=== PATIENT | female | born 1985 | race Caucasian/White ===

== ENCOUNTER 2021-07-01 04:13 | Emergency (ER) | payer BC, MEDICAID, OTHER ==
--- NOTE | 2021-07-01 04:36 | ED Physician Documentation ---
PD HPI ABD PAIN - Stated complaint Stated Complaint: ABD PX - Chief complaint Chief Complaint: Back Pain - History obtained from History obtained from: Patient - History of Present Illness Timing - onset: How many hours ago (4), Today Timing - duration: Hours (4) Timing - details: Abrupt onset (awoke about midnight with left flank to left lwoer abd pain associated with nausea, consistent with prior kidney stones.), Still present Quality: Aching, Sharp, Pain Location: LLQ Radiation: Left flank Improved by: No: Laying still Worsened by: No: Eating, Moving, Position Associated symptoms: Nausea. No: Fever, Hematemesis, Diarrhea, Constipation, Dysuria Similar symptoms before: Diagnosis (several times in the past from kidney stones. 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 : Kidney stones - Present Medications Home Medications: Ambulatory Orders Medication Instructions Recorded Confirmed Naproxen 500 mg PO BID 10 Days #20 tab 07/01/21 Ondansetron Odt [Zofran] 4 mg TL Q6H PRN #10 tablet 07/01/21 oxyCODONE [Roxicodone] 5 mg PO Q4H PRN #12 tablet 07/01/21 - Allergies Allergies/Adverse Reactions: Allergies Allergy/AdvReac Type Severity Reaction Status Date / Time No Known Drug Allergies Allergy Verified 07/01/21 04:33 PD ED PE NORMAL - Vitals Vital signs reviewed: Yes - General General: Alert and oriented X 3, Well developed/nourished, Other (appears in pain, crying, and writhing on cart. ) - Cardiac Cardiac: RRR, No murmur - Respiratory Respiratory: Clear bilaterally - Abdomen Abdomen: Normal bowel sounds, Soft, Non distended, No organomegaly, Other (tender mildly without guarding nor percussion tnederness left lower abd and left CVA area. ) - Female Female : Deferred - Rectal Rectal: Deferred - Back Back: No CVA TTP - Derm Derm: Normal color, Warm and dry - Extremities Extremities: No edema, No calf tenderness / cord - Neuro Neuro: Alert and oriented X 3, No motor deficit, Normal speech Results - Vitals Vitals: Vital Signs - 24 hr 07/01/21 07/01/21 07/01/21 04:31 06:32 07:02 Temperature 36.2 C L 36.4 C L 36.4 C L Heart Rate 99 88 88 Respiratory 19 18 18 Rate Blood Pressure 127/78 137/68 H 137/68 H O2 Saturation 100 99 99 Oxygen O2 Source Room air - Labs Labs: Laboratory Tests 07/01/21 07/01/21 07/01/21 04:45 04:45 04:45 WBC 13.5 H RBC 4.32 Hgb 12.4 Hct 38.1 MCV 88.2 MCH 28.7 MCHC 32.5 RDW 13.7 Plt Count 334 MPV 10.0 Neut # (Auto) 10.6 H Lymph # (Auto) 2.1 [place] # (Auto) 0.5 Eos # (Auto) 0.1 Baso # (Auto) 0.1 Absolute Nucleated RBC 0.00 Nucleated RBC % 0.0 Sodium 132 L Potassium 3.7 Chloride 98 L Carbon Dioxide 24 Anion Gap 10.0 BUN 13 Creatinine 0.7 Estimated GFR (MDRD) 95 Glucose 159 H Calcium 8.6 Total Bilirubin 0.4 AST 29 ALT 50 Alkaline Phosphatase 72 Total Protein 7.3 Albumin 3.7 Globulin 3.6 Albumin/Globulin Ratio 1.0 Lipase 25 Urine Color YELLOW Urine Clarity CLEAR Urine pH 7.0 Ur Specific Artemas 1.020 Urine Protein NEGATIVE Urine Glucose (UA) NEGATIVE Urine Ketones NEGATIVE Urine Occult Blood MODERATE H Urine Nitrite NEGATIVE Urine Bilirubin NEGATIVE Urine Urobilinogen 0.2 (NORMAL) Ur Leukocyte Esterase NEGATIVE Urine RBC 11-25 H Urine WBC 0-3 Ur Squamous Epith Cells MOD Squamous H Urine Bacteria Few Ur Microscopic Review INDICATED Urine Culture Comments NOT INDICATED Urine HCG, Qual NEGATIVE PD MEDICAL DECISION MAKING - ED course Complexity details: reviewed old records (no prior ED visits here nor [facility]. She states she moved to [facility] 4 years ago, address is still [place]. ), re- evaluated patient (improved enough and feels comfortable to go. ), considered differential (symptoms c/w kidney stone and she has had several in the past. Will give meds for pain, and initially hold on imagining (shared decision with patient). ), d/w patient Departure - Departure Disposition: 01 Home, Self Care Clinical Impression: Left sided abdominal pain, Ureterolithiasis Condition: Stable Record reviewed to determine appropriate education?: Yes Instructions: ED Stone Renal W Colic Prescriptions: Naproxen 500 mg PO BID 10 Days #20 tab oxyCODONE [Roxicodone] 5 mg PO Q4H PRN #12 tablet PRN Reason: Pain Ondansetron Odt [Zofran] 4 mg TL Q6H PRN #10 tablet PRN Reason: Nausea / Vomiting Comments: Presume you are passing another small kidney stone. Stay well-hydrated through the day today and tomorrow. Use an anti-inflammatory such as naproxen twice daily with food. To that add Tylenol every 4-6 hours for pain. In addition add oxycodone every 4-6 hours if needed for worse pain. Ondansetron if needed for nausea. Recheck if not improved in seem to pass it over the next few days. I transmitted your prescriptions to [facility] in [place]. I am prescribing a short course of narcotic pain medication for you. These are potentially dangerous and addictive medications that should be used carefully. These medications may constipate you. Take an pswb-icq-tswsjor stool softener such as docusate twice daily with plenty of water while taking these medications. If you go 24 hours without a bowel movement, take tstn-xli-fggnfse MiraLAX, per package instructions. Do not drink or drive while taking these medications. If you received narcotic or sedating medications while in the emergency department do not drive for 24 hours. Store this medication in a safe, secure place and out of reach of children. It is a violation of federal law to give or sell this medication to another person or to use in a manner other than prescribed. The ED will not refill narcotic prescriptions, including prescriptions lost or stolen. You can dispose of unwanted medications at the [facility]'s office or at several pharmacies such as [facility]. Discharge Date/Time: 07/01/21 07:06
[2021-07-01] MEDS ORDERED: KETOROLAC 15 MG/ML VIAL IVP STA (04:47)
[2021-07-01] MEDS ORDERED: SODIUM CHLORIDE 0.9% 1,000 ML IV STA (04:47)
[2021-07-01] MEDS ORDERED: ONDANSETRON 4 MG/2 ML VIAL IVP STA (04:47)
[2021-07-01] MEDS ORDERED: HYDROmorphone 1 MG/ML CARPUJECT IVP STA ×2 (04:47→06:32)
[2021-07-01 04:54] LABS: BASOPHILS # (AUTO) 0.1 10^3/uL (0.0-0.1); BASOPHILS % (AUTO) 0.5 %; EOSINOPHILS # (AUTO) 0.1 10^3/uL (0.0-0.7); EOSINOPHILS % (AUTO) 0.6 %; HCT - HEMATOCRIT 38.1 % (37.0-47.0); HGB - HEMOGLOBIN 12.4 g/dL (12.0-16.0); LYMPHOCYTES # (AUTO) 2.1 10^3/uL (1.5-3.5); LYMPHOCYTES % (AUTO) 15.7 %; MEAN CORPUSCULAR HEMOGLOBIN 28.7 pg (27.0-31.0); MEAN CORPUSCULAR HGB CONC 32.5 g/dL (32.0-36.0); MEAN CORPUSCULAR VOLUME 88.2 fL (81.0-99.0); MONOCYTES # (AUTO) 0.5 10^3/uL (0.0-1.0); MONOCYTES % (AUTO) 3.8 %; NEUTROPHILS # (AUTO) 10.6 10^3/uL (1.5-6.6); NEUTROPHILS % (AUTO) 78.7 %; PLT - PLATELET COUNT 334 10^3/uL (130-450); RED BLOOD COUNT 4.32 10^6/uL (4.20-5.40); RED CELL DISTRIBUTION WIDTH 13.7 % (12.0-15.0); WHITE BLOOD COUNT 13.5 x10^3/uL (4.8-10.8)
[2021-07-01 04:57] LABS: BILIRUBIN,URINE NEGATIVE (NEGATIVE); CLARITY,URINE CLEAR (CLEAR); GLUCOSE, URINE (UA) NEGATIVE (NEGATIVE); KETONES,URINE (UA) NEGATIVE (NEGATIVE); LEUKOCYTE ESTERASE, URINE NEGATIVE (NEGATIVE); NITRITE,URINE NEGATIVE (NEGATIVE); OCCULT BLOOD,URINE MODERATE (NEGATIVE); PROTEIN,URINE NEGATIVE (NEGATIVE); UROBILINOGEN,URINE 0.2 (NORMAL) E.U./dL (NORMAL)
[2021-07-01 04:59] LABS: HCG UR QUAL NEGATIVE
[2021-07-01 05:02] LABS: SQUAMOUS EPITHELIAL CELL,UR MOD Squamous (<= Few); WBC,URINE 0-3 /HPF (0-5)
[2021-07-01 05:03] LABS: BACTERIA,URINE Few /HPF (None Seen)
[2021-07-01 05:07] LABS: ALBUMIN 3.7 g/dL (3.2-5.5); BILIRUBIN,TOTAL 0.4 mg/dL (0.2-1.0); CALCIUM 8.6 mg/dL (8.5-10.3); CREATININE 0.7 mg/dL (0.4-1.0); POTASSIUM 3.7 mmol/L (3.5-5.0); TOTAL PROTEIN 7.3 g/dL (6.7-8.2)
[2021-07-01 06:45] VITALS: BP 137/68
== END 2021-07-01 07:06 | disposition home or self-care (01) ==
LOC: ED 04:13
DX: N20.1 Calculus of ureter (principal)
CPT/HCPCS: 36415; 80053; 81001; 81025; 83690; 85025; 96361; 96374; 96375; 96376; 99283; J1170; 81003; 87086

== ENCOUNTER 2022-10-24 14:52 | Emergency (ER) | payer MEDICAID ==
[2022-10-24 15:06] VITALS: BP 125/78
[2022-10-24] MEDS ORDERED: IBUPROFEN 800 MG TABLET PO STA (15:09)
[2022-10-24] MEDS ORDERED: ACETAMINOPHEN 325 MG TABLET PO STA (15:09)
--- NOTE | 2022-10-24 15:10 | ED Physician Documentation ---
PD HPI LOWER EXT INJURY - Stated complaint Stated Complaint: FALL, PX RT ANKLE, SWELLING - Chief complaint Chief Complaint: Ext Problem - History obtained from History obtained from: Patient - Additional information Additional information: The patient comes to the emergency department chief complaint of right ankle and lower leg pain after from taking a fall on some stairs. She states that she lost her balance and she had a twisting motion of her right ankle as she fell. The patient states she heard a snap somewhere. She has been able to bear little weight since this happened 45 minutes ago but has mostly been hobbling around. The patient complains of pain around the lateral malleolus as well as about midway between there and the knee. No other complaints at this time she was not injured in any other way. No prior injuries. 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 : Kidney stones - Past Surgical History Past Surgical History: No - Present Medications Home Medications: Ambulatory Orders Medication Instructions Recorded Confirmed [place] 10/24/22 HYDROcod/ACETAM 5/325 [[place] 5/325] 1 - 2 tablet PO Q6H PRN #14 tablet 10/24/22 - Allergies Allergies/Adverse Reactions: Allergies Allergy/AdvReac Type Severity Reaction Status Date / Time No Known Drug Allergies Allergy Verified 07/01/21 04:33 - Social History Does the pt smoke?: No Smoking Status: Never smoker Does the pt drink ETOH?: No Does the pt have substance abuse?: No - Immunizations Immunizations are current?: Yes PD ED PE NORMAL - Vitals Vital signs reviewed: Yes - General General: Alert and oriented X 3, No acute distress, Well developed/nourished - HEENT HEENT: Atraumatic, PERRL, EOMI, Moist mucous membranes - Neck Neck: Supple, no meningeal sign - Cardiac Cardiac: Strong equal pulses - Respiratory Respiratory: No respiratory distress - Derm Derm: Normal color, Warm and dry, No rash - Extremities Extremities: No deformity, No edema, Other (Tender over right lateral malleolus without deformity. Also tenderness to the mid lower leg laterally.No deformity there either.) - Neuro Neuro: Alert and oriented X 3 - Psych Psych: Normal mood, Normal affect Results - Vitals Vitals: Vital Signs - 24 hr 10/24/22 15:02 Temperature 36.3 C L Heart Rate 89 Respiratory 18 Rate Blood Pressure 125/78 O2 Saturation 98 Oxygen O2 Source Room air - Rads (name of study) Right ankle x-ray Relevant Findings:: Final report received, See rad report (Bimalleolar fracture without displacement) Right tib-fib x-ray Relevant Findings:: Final report received, See rad report (Proximal fibular fracture) Procedures - Splint (location) - Minor Right lower extremity Splint applied by: Physician, Tech Type of splint: Fiberglass, Long leg, Posterior, Stirrup Other: Patient tolerated well, No complications, Neurovascular intact, Good alignment, Crutches provided PD Medical Decision Making - ED course Complexity details: reviewed results, re-evaluated patient, considered differential, d/w patient ED course: The patient was given ibuprofen and Tylenol and worked up with x-rays of the right ankle and tib-fib, Which showed bimalleolar fracture and a proximal fibular fracture. The patient was placed in a posterior mold long-leg splint with stirrups for this. She was given crutches. We have discussed symptomatic management at home and the need to call orthopedics first thing tomorrow morning, which is Tuesday, and to set up a follow-up appointment. Departure - Departure Disposition: Home, Self Care Clinical Impression: Ankle fracture, bimalleolar, closed Qualifiers: Encounter type: initial encounter Laterality: right Qualified Code(s): S82.841A - Displaced bimalleolar fracture of right lower leg, initial encounter for closed fracture Fracture of proximal end of fibula Qualifiers: Encounter type: initial encounter Fracture type: closed Fracture morphology: torus Laterality: right Qualified Code(s): S82.811A - Torus fracture of upper end of right fibula, initial encounter for closed fracture Condition: Stable Instructions: ED Splint Care Fiberglass Follow-Up: Robert Calix MD [Provider Admit Priv/Credential] - Prescriptions: HYDROcod/ACETAM 5/325 [[place] 5/325] 1 - 2 tablet PO Q6H PRN #14 tablet PRN Reason: Pain Comments: Your x-rays show fractures of both your ankle and the upper part of your fibula, the smaller of your 2 lower leg bones. As such, we have placed in a long-leg splint and you will need to not bear any weight on that leg until cleared by orthopedics. To this end, we have given you a pair of crutches to use. A pres cription for narcotic pain medication has been electronically transmitted to [facility] pharmacy in [place], your pharmacy of choice on record. You may take the pain medication as needed. Follow-up information for orthopedics has been provided above. Please call tomorrow to make the next possible appointment, which should be within the next week. Discharge Date/Time: 10/24/22 16:48
--- NOTE | 2022-10-24 15:45 | XRAY Report ---
PROCEDURE: Tib/Fib RT INDICATIONS: fall/pain TECHNIQUE: 2 views of the tibia and fibula were acquired. COMPARISON: Correlation is made with the accompanying ankle plain films. FINDINGS: Bones: There is a mildly to moderately displaced fracture seen involving the fibular neck. A medial m alleolar fracture is faintly seen. Soft tissues: No suspicious soft tissue calcifications or masses. IMPRESSION: Fibular neck fracture. Mildly displaced medial malleolar fracture faintly seen. Reviewed by: Elkin Menon MD on 10/24/2022 2:44 PM FLORES Approved by: Elkin Menon MD on 10/24/2022 2:44 PM FLORES Station ID: [id number]
--- NOTE | 2022-10-24 15:47 | XRAY Report ---
PROCEDURE: Ankle 3 View RT INDICATIONS: injury/pain TECHNIQUE: 3 views of the ankle were acquired. COMPARISON: Correlation is made with the accompanying tib-fib plain films. FINDINGS: Bones: There is a mildly displaced intra-articular fracture seen involving the inferior aspect of th e medial malleolus. Along the medial aspect of the medial malleolus, there is a rounded fracture fragment seen, which is attributed to a remote fracture. There is a mild fragment of bone seen adjacent to the distal fibular tip, which may related to an acu te avulsion fracture, although differential diagnosis includes a remote avulsion injury. The talar dome demonstrates an unremarkable appearance. No suspicious lytic or blastic lesions are se en. Soft tissues: Soft tissue swelling is seen, which is worst medially. IMPRESSION: Mildly displaced fracture involving the anterior aspect of the medial malleolus. Potential additional avulsion fracture involving the lateral malleolus. There is a remote avulsion fracture fragment seen medial to the medial malleolus. If it would be helpful for clinical management decision making, please consider a dedicated ankle CT for further evaluation. Reviewed by: Elkin Menon MD on 10/24/2022 2:46 PM FLORES Approved by: Elkin Menon MD on 10/24/2022 2:46 PM FLORES Station ID: [id number]
== END 2022-10-24 16:48 | disposition home or self-care (01) ==
LOC: ED 14:52
DX: S82.51XA Displaced fracture of medial malleolus of right tibia, initial encounter for closed fracture (principal); S82.831A Other fracture of upper and lower end of right fibula, initial encounter for closed fracture; W10.9XXA Fall (on) (from) unspecified stairs and steps, initial encounter
CPT/HCPCS: 29515; 73590; 73610; 99283; 99284; A9270

== ENCOUNTER 2022-10-28 15:56 | Outpatient (CLI) | payer MEDICAID ==
--- NOTE | 2022-10-28 16:47 | CT Report ---
PROCEDURE: LOWER EXTREMITY WO - RT INDICATIONS: FX OF RIGHT LOWER LEG TECHNIQUE: Noncontrast 3-mm axial sections acquired from the distal tibial shaft to the talar dome, with coronal and sagittal reformats. For radiation dose reduction, the following was used: automated exposure c ontrol, adjustment of mA and/or kV according to patient size. COMPARISON: Right lower leg and right ankle radiograph dated 10/24/2022. FINDINGS: Image quality: Excellent. Bones: Slightly comminuted fractures involving anteromedial portion of medial malleolus is seen with up to 2 mm diastases at fracture site and a small medially displaced fractured fragment. Minimally d isplaced oblique fracture involving posterior aspect of distal tibia extending to posterior distal ti bial platform with up to 2 mm diastases at fracture site. Fracture involving anterior aspect of dista l lateral malleolus tip is seen with anteriorly displaced small fracture fragments. No other fracture or dislocation is seen. No suspicious intraosseous lesions. No gross osteochondral injuries of talar dome. Soft tissues: There is moderate amount of tibiotalar joint effusion, no calcified intra-articular lo ose bodies. No abnormal soft tissue calcifications. No gross full-thickness tendon rupture. Impression: 1. Acute minimally displaced trimalleolar fracture as above. 2. Moderate tibiotalar joint effusion, no gross loose bodies. No abnormal soft tissue calcifications. 3. No full-thickness ankle tendon rupture. Reviewed by: Haim Rogers MD on 10/28/2022 4:45 PM PDT Approved by: Haim Rogers MD on 10/28/2022 4:45 PM PDT Station ID: [id number]
== END 2022-10-28 15:57 | disposition home or self-care (01) ==
LOC: DI 15:56
PROVIDERS: ATTEND Orthopaedic Surgery
DX: S82.851A Displaced trimalleolar fracture of right lower leg, initial encounter for closed fracture (principal); M25.471 Effusion, right ankle

== ENCOUNTER → 2022-11-18 16:28 | Outpatient (CLI) | payer MEDICAID ==
--- NOTE | 2022-11-18 14:17 | XRAY Report ---
PROCEDURE: Tib/Fib RT INDICATIONS: PROX FIB FRACTURE TECHNIQUE: 2 views of the tibia and fibula were acquired. COMPARISON: CT lower extremity 10/28/2022, x-ray tib-fib 10/24/2022 FINDINGS: Bones: Minimally displaced fibular neck fracture, stable in alignment. Visualized alignment at the a nkle is stable. Previously identified trimalleolar fracture is not as well seen on current exam. No s uspicious bony lesions. Soft tissues: No suspicious soft tissue calcifications or masses. IMPRESSION: Stable alignment of proximal fibular head fracture. Trimalleolar ankle fracture not well seen on current exam. Please see x-ray ankle report for further details. Reviewed by: Hemalatha Garcia MD on 11/18/2022 2:15 PM PDT Approved by: Hemalatha Garcia MD on 11/18/2022 2:15 PM PDT Station ID: [id number]
--- NOTE | 2022-11-18 14:18 | XRAY Report ---
PROCEDURE: Ankle 3 View RT INDICATIONS: RIGHT ANKLE FRACTURE TECHNIQUE: 3 views of the ankle were acquired. COMPARISON: CT lower extremity 10/28/2022, x-ray ankle 10/24/2022. FINDINGS: Bones: Previously identified trimalleolar fracture demonstrates stable alignment. It is noted fractu re lucencies were better visualized on prior CT exam.Ankle mortise is normally aligned. No suspiciou s bony lesions. Soft tissues: No tibiotalar joint effusion. Achilles tendon appears normal. IMPRESSION: Stable alignment of less prominently visualized trimalleolar fracture. Reviewed by: Hemalatha Garcia MD on 11/18/2022 2:16 PM PDT Approved by: Hemalatha Garcia MD on 11/18/2022 2:16 PM PDT Station ID: [id number]
== END | disposition home or self-care (01) ==
LOC: DI.WOS 16:28
PROVIDERS: ATTEND Orthopaedic Surgery
DX: S82.851D Displaced trimalleolar fracture of right lower leg, subsequent encounter for closed fracture with routine healing (principal); S82.831D Other fracture of upper and lower end of right fibula, subsequent encounter for closed fracture with routine healing

== ENCOUNTER 2022-12-09 08:00 | Outpatient (CLI) | payer MEDICAID ==
--- NOTE | 2022-12-09 16:55 | XRAY Report ---
PROCEDURE: Ankle 3 View RT INDICATIONS: RIGHT ANKLE FRACTURE TECHNIQUE: 3 views of the ankle were acquired. COMPARISON: Ankle radiographs 11/18/2022, CT ankle 10/28/2022 FINDINGS: Bones: Similar appearance and alignment of the previously demonstrated ankle fractures. Soft tissues: No tibiotalar joint effusion. IMPRESSION: Similar appearance and alignment of the previously demonstrated ankle fractures. Reviewed by: Reinier Biggs MD on 12/09/2022 4:54 PM PDT Approved by: Reinier Biggs MD on 12/09/2022 4:54 PM PDT Station ID: [id number]
--- NOTE | 2022-12-09 20:42 | XRAY Report ---
PROCEDURE: Tib/Fib RT INDICATIONS: PROX FIB FRACTURE TECHNIQUE: 2 views of the tibia and fibula were acquired. COMPARISON: Ankle radiograph dated 11/18/2022, 10/24/[address] dated 10/28/2022 FINDINGS: Bones: Interval near completely healed trimalleolar fracture in nearly healed proximal fibular shaft fracture is seen. No new fracture or dislocation. No suspicious bony lesions. Soft tissues: No suspicious soft tissue calcifications or masses. IMPRESSION: Partially healed proximal fibular shaft fracture in nearly healed trimalleolar fracture with anatomic right lower leg alignment. No new fracture or dislocation. Reviewed by: Haim Barry MD on 12/09/2022 8:40 PM PDT Approved by: Haim Barry MD on 12/09/2022 8:40 PM PDT Station ID: [id number]
== END 2022-12-09 23:59 | disposition home or self-care (01) ==
LOC: DI.WOS 08:00
PROVIDERS: ATTEND Orthopaedic Surgery
DX: S82.831D Other fracture of upper and lower end of right fibula, subsequent encounter for closed fracture with routine healing (principal)

== ENCOUNTER 2023-03-10 15:26 | Emergency (ER) | payer MEDICAID ==
[2023-03-10 15:37] VITALS: O2SAT 99
--- NOTE | 2023-03-10 17:22 | ED Physician Documentation ---
History of Present Illness - Stated complaint Stated Complaint: RT LEG PX,DIZZY - Chief complaint Chief Complaint: Ext Problem - History obtained from History obtained from: Patient - History of Present Illness Pain level max: 5 Pain level now: 2 - Additonal information Additional information: Patient is a 38-year-old female who presents to the emergency department stating that she had a fracture in her right ankle back in October 2022. She states over the past several days has noticed some slight cramping type pain in the left calf. She states that she is concerned about potential DVT. No redness. No swelling. States the pain is currently mild. 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 - Past Surgical History Past Surgical History: No - Present Medications Home Medications: Ambulatory Orders Medication Instructions Recorded Confirmed [place]a 10/24/22 HYDROcod/ACETAM 5/325 [[place] 5/325] 1 - 2 tablet PO Q6H PRN #14 tablet 10/24/22 - Allergies Allergies/Adverse Reactions: Allergies Allergy/AdvReac Type Severity Reaction Status Date / Time No Known Drug Allergies Allergy Verified 03/10/23 15:31 - Social History Does the pt smoke?: No Smoking Status: Never smoker Does the pt drink ETOH?: No Does the pt have substance abuse?: No - Immunizations Immunizations are current?: Yes PD ED PE NORMAL - Vitals Vital signs reviewed: Yes - General General: Alert and oriented X 3, No acute distress - HEENT HEENT: Moist mucous membranes - Neck Neck: Supple, no meningeal sign - Derm Derm: Warm and dry - Extremities Extremities: No edema, No calf tenderness / cord, Other (normal exam BLE, NVI) - Neuro Neuro: Alert and oriented X 3 Results - Vitals Vitals: Vital Signs - 24 hr 03/10/23 03/10/23 15:31 18:26 Temperature 36.5 C 36.9 C Heart Rate 90 90 Respiratory 16 20 Rate Blood Pressure 140/88 H 149/95 H O2 Saturation 99 99 Oxygen O2 Source Room air - Rads (name of study) duplex US RLE Relevant Findings:: Final report received, See rad report PD Medical Decision Making - ED course Complexity details: reviewed results, re-evaluated patient, considered differential, d/w patient ED course: No acute findings on ultrasound. No DVT. No evidence of skin changes or cellulitis. No emergency medical condition at this time. Patient counseled regarding signs and symptoms for which I believe and urgent re-evaluation would be necessary. Patient with good understanding of and agreement to plan and is comfortable going home at this time This document was made in part using voice recognition software. While efforts are made to proofread this document, sound alike and grammatical errors may occur. Departure - Departure Disposition: 01 Home, Self Care Clinical Impression: Pain of lower extremity Qualifiers: Laterality: right Qualified Code(s): M79.604 - Pain in right leg Condition: Good Instructions: ED Muscle Pain Leg Cramps Follow-Up: Katja Hall MD [Primary Care Provider] - As Needed Comments: Your ultrasound does not show any evidence of DVT today. Please follow-up with your doctor for further care. Please return if you worsen. Forms: PCP List Discharge Date/Time: 03/10/23 18:27
[2023-03-10 18:30] VITALS: BP 149/95
--- NOTE | 2023-03-10 18:47 | Ultrasound Report ---
PROCEDURE: Duplex Ext Veins Right INDICATIONS: pain TECHNIQUE: Real-time imaging, as well as color and pulse Doppler interrogation, were performed of the lower extr emity deep veins from the inguinal ligament to the popliteal fossa. Attempted visualization of the ca lf veins was performed. COMPARISON: None. FINDINGS: The deep veins are normally compressible, and free of intraluminal thrombus. Color and pu lse Doppler demonstrate normal phasic intraluminal flow. There is normal augmentation response to di stal compression maneuver. IMPRESSION: No deep venous thrombosis of the visualized lower extremity. Reviewed by: Som Boateng MD on 03/10/2023 5:46 PM FLORES Approved by: Som Boateng MD on 03/10/2023 5:46 PM FLORES Station ID: [id number]
== END 2023-03-10 18:27 | disposition home or self-care (01) ==
LOC: ED 15:26
DX: M79.604 Pain in right leg (principal)
CPT/HCPCS: 99283; 99284